=== PATIENT | male | born 1975 | race African-American/Black ===

== ENCOUNTER → 2016-12-31 | Outpatient (CLI) | payer BC ==
--- NOTE | 2016-12-31 14:06 | US ---
EXAMINATION TYPE: US gallbladder DATE OF EXAM: 12/31/2016 COMPARISON: NONE CLINICAL HISTORY: R10.11 RT Upper Quadrant Pain. Pt states nausea, pt not NPO wanted to proceed with exam regardless EXAM MEASUREMENTS: Liver Length: 15.3 cm Gallbladder Wall: 0.2 cm CBD: 0.4 cm Right Kidney: 10.3 x 4.6 x 5.1 cm Pt very gassy Pancreas: Obscured by bowel gas Liver: Visualized portions appeared wnl Gallbladder: Lumen clear, appeared wnl Evidence for sonographic Waller's sign: No CBD: wnl Right Kidney: Appeared wnl, lower pole obscured by overlying bowel gas IMPRESSION: 1. No suspicious acute changes. There is limitation due to bowel gas limits exam.
== END | disposition home or self-care (01) ==
LOC: RADUSWWP 08:20
PROVIDERS: ATTEND Family Medicine
DX: R10.11 Right upper quadrant pain (principal)
CPT/HCPCS: 76705

== ENCOUNTER 2017-01-06 12:50 | Inpatient (IN) | payer BC ==
[2017-01-06] MEDS ORDERED: SODIUM CHLORIDE 0.9% 1,000 ML IV STA ×2 (13:18)
--- NOTE | 2017-01-06 13:26 | ED ---
Altered Mental Status HPI - General Chief Complaint: Altered Mental Status Stated Complaint: Altered Mental Status Time Seen by Provider: 01/06/17 13:00 Source: family, RN notes reviewed, old records reviewed Mode of arrival: ambulatory Limitations: altered mental status - History of Present Illness Initial Comments: This is a 41-year-old male history of schizophrenia who is brought in by his significant other for evaluation for decreased responsiveness and muscle twitching. Per the significant other the patient has been on latuda in the past but apparently is only been on it sporadically since February of this past year he did restarted taking 2 pills last week and then for the past 5 days she' s been using that he has been having sweats he is having muscle twitching and jerking. He is a decreased oral intake decreased responsiveness. No reports of alcohol or drugs no reports of trauma no reports of fevers or chills cough phlegm production dysuria. Information was gathered from the patient's significant other the patient is nonverbal he does somewhat cooperate with the exam however he wouldn't open his mouth upon request he did allow me to listen to his lungs. MD Complaint: altered mental status, decreased responsiveness, other - Related Data Home Medications Medication Instructions Recorded Confirmed Lurasidone HCl [Latuda] 20 mg PO DAILY 01/06/17 01/06/17 diphenhydrAMINE [Benadryl] 25 - 50 mg PO HS PRN 01/06/17 01/06/17 Allergies Allergy/AdvReac Type Severity Reaction Status Date / Time No Known Allergies Allergy Verified 01/06/17 14:06 Review of Systems ROS Statement: Those systems with pertinent positive or pertinent negative responses have been documented in the HPI. ROS Other: All systems not noted in ROS Statement are negative. Limitations: ROS unobtainable due to patients medical condition Past Medical History Past Medical History: No Reported History History of Any Multi-Drug Resistant Organisms: None Reported Past Surgical History: No Surgical Hx Reported Past Psychological History: Bipolar Smoking Status: Current every day smoker Past Alcohol Use History: Occasional Past Drug Use History: None Reported General Exam - General Exam Comments Initial Comments: This is a well-developed well-nourished awake alert male who is nonverbal he appears be no acute distress however. Limitations: altered mental status General appearance: alert, in no apparent distress Head exam: Present: atraumatic, normocephalic, normal inspection Eye exam: Present: normal appearance, PERRL, EOMI. Absent: scleral icterus, conjunctival injection, periorbital swelling ENT exam: Present: other (Unable to evaluate oral cavity the auditory canals appear to be clear) Neck exam: Present: normal inspection. Absent: tenderness, meningismus, lymphadenopathy Respiratory exam: Present: normal lung sounds bilaterally. Absent: respiratory distress, wheezes, rales, rhonchi, stridor Cardiovascular Exam: Present: regular rate, normal rhythm, normal heart sounds. Absent: systolic murmur, diastolic murmur, rubs, gallop, clicks GI/Abdominal exam: Present: soft, normal bowel sounds. Absent: distended, tenderness, guarding, rebound, rigid Extremities exam: Present: normal inspection, full ROM, normal capillary refill. Absent: tenderness, pedal edema, joint swelling, calf tenderness Back exam: Present: normal inspection Neurological exam: Present: alert, CN II-XII intact, reflexes normal, other ( Unable to fully evaluate due to the patient's lack of cooperation) Psychiatric exam: Present: flat affect Skin exam: Present: warm, dry, intact, normal color. Absent: rash Course Vital Signs 01/06/17 01/06/17 01/06/17 12:53 13:38 14:21 Temperature 96.8 F L Pulse Rate 120 H 81 86 Respiratory 18 18 20 Rate Blood Pressure 138/84 145/90 141/90 O2 Sat by Pulse 100 95 95 Oximetry 01/06/17 15:46 Temperature Pulse Rate 86 Respiratory 20 Rate Blood Pressure 146/90 O2 Sat by Pulse 96 Oximetry Medical Decision Making - Medical Decision Making Patient was evaluated by psych service after being medically cleared patient will be admitted for inpatient treatment - Lab Data Result diagrams: 01/06/17 13:20 01/06/17 13:20 Lab Results 01/06/17 01/06/17 01/06/17 Range/Units 13:20 13:20 13:20 WBC 5.3 (3.8-10.6) k/uL RBC 5.50 (4.30-5.90) m/uL Hgb 16.8 (13.0-17.5) gm/dL Hct 49.2 (39.0-53.0) % MCV 89.5 (80.0-100.0) fL MCH 30.6 (25.0-35.0) pg MCHC 34.2 (31.0-37.0) g/dL RDW 14.5 (11.5-15.5) % Plt Count 233 (150-450) k/uL Neutrophils % 67 % Lymphocytes % 25 % Monocytes % 5 % Eosinophils % 1 % Basophils % 1 % Neutrophils # 3.6 (1.3-7.7) k/uL Lymphocytes # 1.3 (1.0-4.8) k/uL Monocytes # 0.3 (0-1.0) k/uL Eosinophils # 0.1 (0-0.7) k/uL Basophils # 0.0 (0-0.2) k/uL Sodium 140 (137-145) mmol/L Potassium 3.7 (3.5-5.1) mmol/L Chloride 105 (98-107) mmol/L Carbon Dioxide 21 L (22-30) mmol/L Anion Gap 14 mmol/L BUN 19 (9-20) mg/dL Creatinine 1.40 H (0.66-1.25) mg/dL Est GFR (MDRD) Af Amer >60 (>60 ml/min/1.73 sqM) Est GFR (MDRD) Non-Af 55 (>60 ml/min/1.73 sqM) Glucose 131 H (74-99) mg/dL Plasma Lactic Acid Lv (0.7-2.0) mmol/L Calcium 10.2 (8.4-10.2) mg/dL Magnesium 2.3 (1.6-2.3) mg/dL Total Bilirubin 1.3 (0.2-1.3) mg/dL AST 18 (17-59) U/L ALT 32 (21-72) U/L Alkaline Phosphatase 89 (38-126) U/L Total Creatine Kinase 193 H (55-170) U/L CK-MB (CK-2) 0.7 (0.0-2.4) ng/mL CK-MB (CK-2) Rel Index 0.4 Troponin I <0.012 (0.000-0.034) ng/mL Total Protein 7.9 (6.3-8.2) g/dL Albumin 4.7 (3.5-5.0) g/dL Amylase 33 (30-110) U/L Lipase 164 (23-300) U/L TSH 1.270 (0.465-4.680) mIU/L Salicylates <1.0 mg/dL Acetaminophen <10.0 ug/mL Serum Alcohol <10 mg/dL 01/06/17 Range/Units 13:20 WBC (3.8-10.6) k/uL RBC (4.30-5.90) m/uL Hgb (13.0-17.5) gm/dL Hct (39.0-53.0) % MCV (80.0-100.0) fL MCH (25.0-35.0) pg MCHC (31.0-37.0) g/dL RDW (11.5-15.5) % Plt Count (150-450) k/uL Neutrophils % % Lymphocytes % % Monocytes % % Eosinophils % % Basophils % % Neutrophils # (1.3-7.7) k/uL Lymphocytes # (1.0-4.8) k/uL Monocytes # (0-1.0) k/uL Eosinophils # (0-0.7) k/uL Basophils # (0-0.2) k/uL Sodium (137-145) mmol/L Potassium (3.5-5.1) mmol/L Chloride (98-107) mmol/L Carbon Dioxide (22-30) mmol/L Anion Gap mmol/L BUN (9-20) mg/dL Creatinine (0.66-1.25) mg/dL Est GFR (MDRD) Af Amer (>60 ml/min/1.73 sqM) Est GFR (MDRD) Non-Af (>60 ml/min/1.73 sqM) Glucose (74-99) mg/dL Plasma Lactic Acid Lv 1.5 (0.7-2.0) mmol/L Calcium (8.4-10.2) mg/dL Magnesium (1.6-2.3) mg/dL Total Bilirubin (0.2-1.3) mg/dL AST (17-59) U/L ALT (21-72) U/L Alkaline Phosphatase (38-126) U/L Total Creatine Kinase (55-170) U/L CK-MB (CK-2) (0.0-2.4) ng/mL CK-MB (CK-2) Rel Index Troponin I (0.000-0.034) ng/mL Total Protein (6.3-8.2) g/dL Albumin (3.5-5.0) g/dL Amylase (30-110) U/L Lipase (23-300) U/L TSH (0.465-4.680) mIU/L Salicylates mg/dL Acetaminophen ug/mL Serum Alcohol mg/dL - EKG Data -: EKG Interpreted by [facility] EKG shows normal: sinus rhythm (Normal sinus rhythm of 87 appear interval 126 QRS duration 72 QT since QTC of 354/425 nonspecific T-wave configuration in the inferior and anterior leads.) - Radiology Data Radiology results: report reviewed (Imaging was reviewed no acute findings.), image reviewed Disposition Clinical Impression: Schizophrenia, acute Disposition: TRANSFER TO PSYCH HOSP/UNIT Condition: Stable Referrals: Dequan Alvarez DO [Primary Care Provider] - 1-2 days
[2017-01-06 13:51] LABS: Basophils % (A) 1 %; CHCM 35.9; Eosinophils # (A) 0.1 k/uL (0-0.7); Eosinophils % (A) 1 %; HCT 49.2 % (39.0-53.0); HDW 2.67; HGB 16.8 gm/dL (13.0-17.5); Luc # (Auto) 0.07; Luc % (Auto) 1; Lymphocytes # (A) 1.3 k/uL (1.0-4.8); Lymphocytes % (A) 25 %; MCH 30.6 pg (25.0-35.0); MCHC 34.2 g/dL (31.0-37.0); MCV 89.5 fL (80.0-100.0); Mean Platelet Volume 7.8; Monocytes # (A) 0.3 k/uL (0-1.0); Monocytes % (A) 5 %; Neutrophils # (A) 3.6 k/uL (1.3-7.7); Neutrophils % (A) 67 %; RDW 14.5 % (11.5-15.5); WBC 5.3 k/uL (3.8-10.6); WBC (Perox) 5.35
[2017-01-06 13:56] LABS: ALT 32 U/L (21-72); AST 18 U/L (17-59); Acetaminophen <10.0 ug/mL; Alcohol <10 mg/dL; Alkaline Phosphatase 89 U/L (38-126); Amylase 33 U/L (30-110); Anion Gap 14 mmol/L; Blood Urea Nitrogen 19 mg/dL (9-20); Calcium 10.2 mg/dL (8.4-10.2); Carbon Dioxide 21 mmol/L (22-30); Chloride 105 mmol/L (98-107); Glucose 131 mg/dL (74-99); Magnesium 2.3 mg/dL (1.6-2.3); Non-African American GFR(MDRD) 55 (>60 ml/min/1.73 sqM); Potassium 3.7 mmol/L (3.5-5.1); Salicylate <1.0 mg/dL; Sodium 140 mmol/L (137-145); Total Bilirubin 1.3 mg/dL (0.2-1.3); Total Protein 7.9 g/dL (6.3-8.2)
--- NOTE | 2017-01-06 14:02 | XR ---
EXAMINATION TYPE: XR chest 2V DATE OF EXAM: 01/06/2017 COMPARISON: 08/16/2008 HISTORY: 41-year-old male with cough TECHNIQUE: Frontal and lateral views FINDINGS: Heart is upper limits of normal in size. Aorta and pulmonary vasculature are within normal limits. So me scattered mild central peribronchial cuffing is noted. No consolidation or pleural effusion. IMPRESSION: Some mild central peribronchial cuffing could represent bronchitis or uncontrolled asthma.
[2017-01-06 14:09] LABS: Creatine Kinase 193 U/L (55-170)
[2017-01-06 14:22] LABS: Creatine Kinase MB 0.7 ng/mL (0.0-2.4); Troponin I <0.012 ng/mL (0.000-0.034)
[2017-01-06] MEDS ORDERED: diphenhydrAMINE 50 MG/ML 1 ML VIAL IVP STA (15:31)
[2017-01-06] MEDS ORDERED: MAG HYDROX/AL HYDROX/SIMETH 30 ML CUP PO PRN (18:20)
[2017-01-06] MEDS ORDERED: ACETAMINOPHEN TAB 325 MG TAB PO PRN (18:20)
[2017-01-06] MEDS ORDERED: MAGNESIUM HYDROXIDE 2,400 MG/10 ML CUP PO PRN (18:20)
[2017-01-06] MEDS ORDERED: ZIPRASIDONE 20 MG VIAL IM PRN (18:20)
[2017-01-06] MEDS: LORazepam 1 MG TAB PO PRN (18:42)
[2017-01-06] MEDS ORDERED: OLANZapine ODT 5 MG TAB PO ONE (19:30)
[2017-01-06] MEDS: OLANZapine ODT 5 MG TAB PO PRN (20:12)
[2017-01-07] MEDS: LORazepam 1 MG TAB PO PRN ×2 (07:49→16:08)
[2017-01-07] MEDS: OLANZapine ODT 5 MG TAB PO PRN ×2 (07:49→16:19)
--- NOTE | 2017-01-07 16:28 | P.MDCNMH ---
History of Present Illness H&P Date: 01/07/17 Chief Complaint: Medical management This is a 41-year-old -[place] male patient of Dr. Covarrubias with no reported medical history and no surgical history. Patient may have history of schizophrenia. Patient does not have hospitalization here at this facility. Patient is unable to provide information about his history nor whether he's been taking to do as prescribed. Patient apparently came into the emergency center for evaluation for decreased responsiveness and muscle twitching. Noted the patient's creatinine is elevated about 1.4 and has baseline appears to be about 1.2. Patient has been encouraged to increase oral fluids. Total CK is a 193. Troponin was negative and TSH negative. Salicylates and acetaminophen and serum alcohol level were negative. Urine drug screen was not done in the emergency center. Patient apparently has not been eating much and that's about all he will say. He denies any chest pain. Review of Systems ROS unobtainable: due to mental status Past Medical History Past Medical History: No Reported History History of Any Multi-Drug Resistant Organisms: None Reported Past Surgical History: No Surgical Hx Reported Past Psychological History: Bipolar Smoking Status: Current every day smoker Past Alcohol Use History: Occasional Past Drug Use History: None Reported - Past Family History Father Additional Family Medical History / Comment(s): Patient will not provide any information regarding his family history. Medications and Allergies Home Medications Medication Instructions Recorded Confirmed Type Lurasidone HCl [Latuda] 20 mg PO DAILY 01/06/17 01/06/17 History diphenhydrAMINE [Benadryl] 25 - 50 mg PO HS PRN 01/06/17 01/06/17 History Allergies Allergy/AdvReac Type Severity Reaction Status Date / Time No Known Allergies Allergy Verified 01/06/17 14:06 Physical Exam Vitals: Vital Signs Temp Pulse Pulse Resp BP BP Pulse Ox 01/07/17 06:57 98.3 F 73 16 128/69 01/06/17 21:15 80 18 130/80 01/06/17 19:48 148 H 137/90 01/06/17 19:30 98.2 F 87 15 143/74 96 01/06/17 18:15 64 16 130/76 100 01/06/17 16:46 80 20 139/81 98 01/06/17 15:46 86 20 146/90 96 01/06/17 14:21 86 20 141/90 95 01/06/17 13:38 81 18 145/90 95 Intake and Output 01/06/17 01/07/17 01/07/17 22:59 06:59 14:59 Other: Weight 101.151 kg Gen: This is a 41-year-old -[place] male. He is nonverbal but will follow directions. He does not appear to be in acute distress. HEENT: Head is atraumatic, normocephalic. Pupils equal, round. Sclerae is anicteric. NECK: Supple. No JVD. No lymphadenopathy. No thyromegaly. LUNGS: Clear to auscultation. No wheezes or rhonchi. No intercostal retractions. HEART: Regular rate and rhythm. No murmur. ABDOMEN: Soft. Bowel sounds are present. No masses. No tenderness. EXTREMITIES: No pedal edema. No calf tenderness. NEUROLOGICAL: Patient is awake, alert and oriented x1. Cranial nerves 2 through 12 are grossly intact. Cranial Nerve Examination - Cranial Nerves Cranial Nerve II- Optic: Intact Cranial Nerve III- Oculomotor: Intact Cranial Nerve IV- Trochlear: Intact Cranial Nerve V- Trigeminal: Intact Cranial Nerve - Abducens: Intact Cranial Nerve VII- Facial: Intact Cranial Nerve VIII- Auditory: Intact Cranial Nerve IX- Glossopharyngeal: Intact Cranial Nerve X- Vagus: Intact Cranial Nerve XI- Accessory: Intact Cranial Nerve XII- Hypoglossal: Intact Results CBC & Chem 7: 01/06/17 13:20 01/06/17 13:20 Labs: Abnormal Lab Results - Last 24 Hours (Table) 01/06/17 01/06/17 Range/Units 13:20 13:20 Carbon Dioxide 21 L (22-30) mmol/L Creatinine 1.40 H (0.66-1.25) mg/dL Glucose 131 H (74-99) mg/dL Total Creatine Kinase 193 H (55-170) U/L Assessment and Plan Plan: 1. Confusion with probable underlying history of schizophrenia. Patient admitted to the mental health unit. Continue current plan per psychiatrist. 2. Dehydration with elevated creatinine of 1.4. Patient encouraged to increase oral intake. 3. Chronic kidney disease stage III. Impression and plan of care have been directed as dictated by the signing physician. Urvashi Marquez nurse practitioner acting as scribe for signing physician.
[2017-01-07 17:39] LABS: Appearance,Urine Clear (Clear); Bilirubin,Urine Negative (Negative); Glucose,Urine (UA) Negative (Negative); Ketones,Urine Negative (Negative); Leukocyte Esterase,Urine Negative (Negative); Nitrite,Urine Negative (Negative); Protein,Urine Trace (Negative); Specific Gravity,Urine 1.015 (1.001-1.035); UA Billing (MACRO vs. MICRO) CHEM; Urobilinogen,Urine <2.0 mg/dL (<2.0)
[2017-01-07] MEDS: ATORVASTATIN 40 MG TAB PO SCH (19:44)
[2017-01-07] MEDS: DIAZEPAM 2 MG TAB PO SCH (21:32)
--- NOTE | 2017-01-07 22:01 | P.HP ---
Psychiatric H&P - . H&P Date: 01/07/17 History & Physical: Allergies Allergy/AdvReac Type Severity Reaction Status Date / Time No Known Allergies Allergy Verified 01/06/17 14:06 Vital Signs Temp 98.3 F 01/07/17 06:57 Pulse 73 01/07/17 06:57 Resp 16 01/07/17 06:57 BP 128/69 01/07/17 06:57 Pulse Ox 96 01/06/17 19:30 Intake & Output 01/06/17 01/07/17 01/07/17 18:59 06:59 18:59 Weight 101.151 kg Laboratory Last Values WBC 5.3 k/uL (3.8-10.6) 01/06/17 13:20 RBC 5.50 m/uL (4.30-5.90) 01/06/17 13:20 Hgb 16.8 gm/dL (13.0-17.5) 01/06/17 13:20 Hct 49.2 % (39.0-53.0) 01/06/17 13:20 MCV 89.5 fL (80.0-100.0) 01/06/17 13:20 MCH 30.6 pg (25.0-35.0) 01/06/17 13:20 MCHC 34.2 g/dL (31.0-37.0) 01/06/17 13:20 RDW 14.5 % (11.5-15.5) 01/06/17 13:20 Plt Count 233 k/uL (150-450) 01/06/17 13:20 Neutrophils % 67 % 01/06/17 13:20 Lymphocytes % 25 % 01/06/17 13:20 Monocytes % 5 % 01/06/17 13:20 Eosinophils % 1 % 01/06/17 13:20 Basophils % 1 % 01/06/17 13:20 Neutrophils # 3.6 k/uL (1.3-7.7) 01/06/17 13:20 Lymphocytes # 1.3 k/uL (1.0-4.8) 01/06/17 13:20 Monocytes # 0.3 k/uL (0-1.0) 01/06/17 13:20 Eosinophils # 0.1 k/uL (0-0.7) 01/06/17 13:20 Basophils # 0.0 k/uL (0-0.2) 01/06/17 13:20 Sodium 140 mmol/L (137-145) 01/06/17 13:20 Potassium 3.7 mmol/L (3.5-5.1) 01/06/17 13:20 Chloride 105 mmol/L (98-107) 01/06/17 13:20 Carbon Dioxide 21 mmol/L (22-30) L 01/06/17 13:20 Anion Gap 14 mmol/L 01/06/17 13:20 BUN 19 mg/dL (9-20) 01/06/17 13:20 Creatinine 1.40 mg/dL (0.66-1.25) H 01/06/17 13:20 Est GFR (MDRD) Af Amer >60 (>60 ml/min/1.73 sqM) 01/06/17 13:20 Est GFR (MDRD) Non-Af 55 (>60 ml/min/1.73 sqM) 01/06/17 13:20 Glucose 131 mg/dL (74-99) H 01/06/17 13:20 Plasma Lactic Acid Lv 1.5 mmol/L (0.7-2.0) 01/06/17 13:20 Calcium 10.2 mg/dL (8.4-10.2) 01/06/17 13:20 Magnesium 2.3 mg/dL (1.6-2.3) 01/06/17 13:20 Total Bilirubin 1.3 mg/dL (0.2-1.3) 01/06/17 13:20 AST 18 U/L (17-59) 01/06/17 13:20 ALT 32 U/L (21-72) 01/06/17 13:20 Alkaline Phosphatase 89 U/L (38-126) 01/06/17 13:20 Total Creatine Kinase 193 U/L (55-170) H 01/06/17 13:20 CK-MB (CK-2) 0.7 ng/mL (0.0-2.4) 01/06/17 13:20 CK-MB (CK-2) Rel Index 0.4 01/06/17 13:20 Troponin I <0.012 ng/mL (0.000-0.034) 01/06/17 13:20 Total Protein 7.9 g/dL (6.3-8.2) 01/06/17 13:20 Albumin 4.7 g/dL (3.5-5.0) 01/06/17 13:20 Amylase 33 U/L (30-110) 01/06/17 13:20 Lipase 164 U/L (23-300) 01/06/17 13:20 TSH 1.270 mIU/L (0.465-4.680) 01/06/17 13:20 Urine Color Yellow 01/07/17 17:22 Urine Appearance Clear (Clear) 01/07/17 17:22 Urine pH 6.0 (5.0-8.0) 01/07/17 17:22 Ur Specific [place] 1.015 (1.001-1.035) 01/07/17 17:22 Urine Protein Trace (Negative) H 01/07/17 17:22 Urine Glucose (UA) Negative (Negative) 01/07/17 17:22 Urine Ketones Negative (Negative) 01/07/17 17:22 Urine Blood Negative (Negative) 01/07/17 17:22 Urine Nitrite Negative (Negative) 01/07/17 17:22 Urine Bilirubin Negative (Negative) 01/07/17 17:22 Urine Urobilinogen <2.0 mg/dL (<2.0) 01/07/17 17:22 Ur Leukocyte Esterase Negative (Negative) 01/07/17 17:22 Ur Random Creatinine 231.6 mg/dL 01/07/17 17:22 Ur Random Sodium 40 mmol/L (30-90) 01/07/17 17:22 Salicylates <1.0 mg/dL 01/06/17 13:20 Acetaminophen <10.0 ug/mL 01/06/17 13:20 Serum Alcohol <10 mg/dL 01/06/17 13:20 EPS Assessment (01/06/2017): Patient lives with who is with him at bedside. Patient presents with tense , stiff muscles. He appears restless and jittery, at time twitching. When blog writer was asking questions patient was unable to articulate his thoughts. It was difficult for him to form words. Patient has a psych history where he was prescribed Latua. The patient was doing so good the psycharitist stated he no longer needed appointments and that his primary could refill his psych meds. The patient was doing so well he asked his primary if he could stop taking these medications and the primary gave him the OK. This was in February. Approx two weeks ago the patient started having difficulties and within the last couple days his difficulies became severe to the point it was difficult to speak. HPI (01/07/2017): Chava Desai is 41 year old black male who presented to the ER with his who reported a change in patient's mental status over the last two weeks. Patient has historical diagnosis of Psychotic Disorder NOS and has been taking Latuda 20-mg PO QD sporadically since February of 2016 when it was stopped by his prescribing PCP. Patient was admitted to the inpatient unit for evaluation. Patient is difficult to interview due to his inability to answer most questions. Throughout the day, he has shown signs of selective mutism, impoverished speech, and thought blocking at different times. It was noted by staff that receiving a dose of Ativan 1-mg PO patient's spontaneous speech and motor function increased dramatically. Patient is overall a poor historian. He' s not sure why he's in the hospital, but he does believe his brought him to the hospital because he needs help. Patient denies any memory of previous psychiatric admissions or medication history. Patient was offered the choice of Zyprexa or Latuda, he has a history of doing well with both. Patient chose to remain on Latuda. At this time, patient is catatonic, PSYCHIATRIC HISTORY: per chart review this is patient's third psychiatric hospitalization, past diagnosis Psychotic Disorder NOS, prior response to Zyprexa, gynecomastia with Rispperdal PMH: unable to assess due to mental status HOME MEDICATIONS: Home Medications Medication Instructions Recorded Confirmed Lurasidone HCl [Latuda] 20 mg PO DAILY 01/06/17 01/06/17 diphenhydrAMINE [Benadryl] 25 - 50 mg PO HS PRN 01/06/17 01/06/17 SURGICAL HISTORY: unable to assess due to mental status CHEMICAL DEPENDENCY HISTORY: unable to assess due to mental status FAMILY HISTORY: unable to assess due to mental status SOCIAL HISTORY:unable to assess due to mental status education: occupational: environmental: : jain: access t o firearms: sexual orientation: safety at home: STRENGTHS/WEAKNESSES: unable to assess due to mental status INTELLECTUAL FUNCTIONING: per review of the medical record, presumed: average MENTAL STATUS EXAM: Appearance: alert, well groomed, appears stated age, steady gait Behavior: psychomotor retardation+, no abnormal movements, fair eye contact Attitude: cooperative? Speech: minimal, impoverished, increased latency, normal rhythm, normal fluency, normal articulation, volume is soft, prosody is choppy primary language : Turkmen Mood: euthymic? Affect: flat, void of mobility, incongruent with mood Thought processes: thought blocking Thought content: patient does not appear to be responding to internal stimuli; patient denies auditory and visual hallucinations, no delusions appreciated Insight: poor Judgment: fair? Assessment and Plan (1) Catatonia Narrative/Plan: * start Valium 2-mg PO TID and titrate up over the next few days * start Latuda 40-mg PO with breakfast Status: Acute Plan: continue hospitalization, patient is catatonic and while history supports this diagnosis has always been present, it was never given in the past so it must be treated as new onset and fully worked up, patient has carried a non-specific diagnosis of no meaning for over a decade with the same reoccurring symptoms, once the patient's catatonia has resolved patient's mental status will be re- evaluated and an appropriate treatment regimen and plan will begin. Time with Patient: Greater than 30
[2017-01-08] MEDS: OLANZapine ODT 5 MG TAB PO PRN ×2 (01:36→14:12)
[2017-01-08] MEDS: LORazepam 2 MG/ML INJ IM PRN ×2 (05:33→16:23)
[2017-01-08] MEDS: LURASIDONE 40 MG TAB PO SCH (08:31)
[2017-01-08] MEDS: DIAZEPAM 2 MG TAB PO SCH ×3 (08:31→20:38)
[2017-01-08 13:20] LABS: ALT 33 U/L (21-72); AST 23 U/L (17-59); Alkaline Phosphatase 82 U/L (38-126); Anion Gap 12 mmol/L; Blood Urea Nitrogen 18 mg/dL (9-20); Calcium 9.8 mg/dL (8.4-10.2); Carbon Dioxide 29 mmol/L (22-30); Chloride 100 mmol/L (98-107); Glucose 116 mg/dL (74-99); Non-African American GFR(MDRD) >60 (>60 ml/min/1.73 sqM); Potassium 3.8 mmol/L (3.5-5.1); Sodium 141 mmol/L (137-145); Total Protein 7.2 g/dL (6.3-8.2)
[2017-01-08 13:53] LABS: Hemoglobin A1C 5.9 % (4.2-6.1)
--- NOTE | 2017-01-08 14:58 | P.PN ---
Progress Note - Text Interval history: Patient is seen in cross coverage today for Dr. Sadler. He is found in the library standing up with his right arm up and flexed at the elbow. He is nonverbal. His eyes are closed during much of the session. He had been seen earlier in the group setting standing up and not verbalizing. He was directed by nursing staff to go to his room/bathroom Mental status exam: He is found in the library standing up, not verbalizing. His eyes are closed during much of the time. He does not show any agitation. His right arm is held up, flexed at the elbow during much of the session. Plan: We will monitor how he responds to the Valium which is ordered. Ativan is ordered as needed. We'll continue to monitor his status and monitor his response to the current treatment regimen. We'll continue to cover this patient for Dr. Sadler through the weekend.
[2017-01-08 17:15] LABS: Treponemal Ab Non-Reactive (Non-Reactive)
[2017-01-08] MEDS: ATORVASTATIN 40 MG TAB PO SCH (20:38)
[2017-01-09] MEDS: DIAZEPAM 2 MG TAB PO SCH ×3 (11:07→21:19)
[2017-01-09] MEDS: LURASIDONE 40 MG TAB PO SCH (11:07)
--- NOTE | 2017-01-09 12:54 | P.PN ---
Progress Note - Text Interval history: Patient is seen in cross coverage today for Dr. Sadler. He is found in his room lying in bed. He is able to sit up in the bed and although nonverbal seems to relay that he would like to meet in the room. He is nonverbal during the session. Mental status exam: He is initially found in his room lying in bed. He is able to sit up on the bed. He is nonverbal during the session. He does not exhibit any agitation. His eye contact is poor. Returned to the room with the male staff to examine his upper extremities which I did not appreciate any rigidity. I did not note any significant abnormal involuntary movements. Plan: At this time we'll discontinue Latuda. Per chart history he had started this approximately 5 days prior to the admission, will discontinue due to concern of possible side effects. We'll order a neurological consultation with catatonia type presentation to rule out any possibility of seizure activity. We 'll continue to monitor the patient's status.
[2017-01-09] MEDS: LORazepam 2 MG/ML INJ IM PRN (14:40)
[2017-01-09] MEDS: ATORVASTATIN 40 MG TAB PO SCH (21:20)
[2017-01-10] MEDS: DIAZEPAM 2 MG TAB PO SCH (08:58)
[2017-01-10 11:57] LABS: ANA w/Reflex to Titer NEGATIVE (NEGATIVE)
[2017-01-10] MEDS: DIAZEPAM 5 MG TAB PO SCH ×2 (15:40→20:45)
--- NOTE | 2017-01-10 15:51 | P.CNNES ---
History of Present Illness Consult date: 01/10/17 Requesting physician: Stefano Sadler Reason for Consult: Catatonia versus seizure disorder History of Present Illness: Patient is a 41-year-old -[place] male who is being evaluated by the neurology service on 01/10/2017 per the request of Dr. Sadler for the above- mentioned. Patient is poor historian and information was gathered from the chart and from staff. Patient has history of psychotic disorder and had been taking Latuda for some time. In February 2016, patient was taken off of Latuda by PCP. Patient was doing well at that time. Latuda was then restarted by psychiatry and patient was having extrapyramidal symptoms and it was discontinued again. Reportedly, patient has periods of coherent behavior followed by periods of inability to respond. Patient was noted to have tremoring in the ER. Nursing reports questionable absence seizure behavior. No obvious lateralizing weakness is noted. Staff reports patient does display periods of stiff muscles and shuffling ambulation which improves with Valium administration. No tonic-clonic movements have been witnessed. Patient does not have history of seizures. No post ictal state has been described. Vital signs on admission were temp 96.8, pulse rate 120, respiratory rate 18, blood pressure 138/84, and O2 saturation 100% on room air. Laboratory workup showed CBC within normal limits, electrolytes were within normal limits except carbon dioxide of 21. BUN 19, creatinine 1.4. Urine drug screen was positive for benzodiazepines and marijuana. At the time of my evaluation, patient is sitting up at the bedside, answering questions, and moving all extremities. Patient appears to be in no acute distress. Review of Systems REVIEW OF SYSTEMS: Otherwise unremarkable and noncontributory. Past Medical History Past Medical History: No Reported History History of Any Multi-Drug Resistant Organisms: None Reported Past Surgical History: No Surgical Hx Reported Past Psychological History: Bipolar Smoking Status: Current every day smoker Past Alcohol Use History: Occasional Past Drug Use History: None Reported - Past Family History Father Additional Family Medical History / Comment(s): Patient will not provide any information regarding his family history. Medications and Allergies Home Medications Medication Instructions Recorded Confirmed Type Lurasidone HCl [Latuda] 20 mg PO DAILY 01/06/17 01/06/17 History diphenhydrAMINE [Benadryl] 25 - 50 mg PO HS PRN 01/06/17 01/06/17 History Allergies Allergy/AdvReac Type Severity Reaction Status Date / Time No Known Allergies Allergy Verified 01/06/17 14:06 Physical Examination - Vital Signs Vital Signs: Vital Signs Temp Pulse Resp BP 01/10/17 07:15 98.5 F 62 16 110/69 01/09/17 16:23 76 16 122/73 PHYSICAL EXAM: GENERAL APPEARANCE: Patient is a well-developed, -[place] male who appears to be in no acute distress. HEENT: Normocephalic, atraumatic, no facial asymmetry is seen. Neck is supple with no masses felt. CARDIOVASCULAR: Regular rate and rhythm. ABDOMEN: Nontender, nondistended. EXTREMITIES: Show no edema or clubbing. NEUROLOGICAL EXAM: Patient is awake, alert, and oriented 3. Speech is normal but slowed. Language is normal. Strength is full in all 4 extremities. Sensory exam to light touch is normal in all extremities. No obvious facial asymmetry is seen on cranial nerve testing. No tremors or seizure-like activity is noted. Results - Laboratory Findings CBC and BMP: 01/06/17 13:20 01/08/17 12:11 Abnormal Lab Findings: Abnormal Labs 01/06/17 01/06/17 01/07/17 13:20 13:20 17:22 Carbon Dioxide 21 L Creatinine 1.40 H Glucose 131 H Total Creatine Kinase 193 H Urine Protein Trace H U Benzodiazepines Scrn U Marijuana (THC) Screen 01/07/17 01/08/17 17:22 12:11 Carbon Dioxide Creatinine 1.30 H Glucose 116 H Total Creatine Kinase Urine Protein U Benzodiazepines Scrn Detected H U Marijuana (THC) Screen Detected H Assessment and Plan Plan: Impression: 1. Altered mental status 2. Questionable seizure activity 3. Psychotic disorder Recommendations: It does appear that patient is not as responsive as he had been in the past according to the chart. Patient is responsive and answering questions on my exam. Patient does have a flat affect. He denies pain. Given description of possible absence seizure, along with muscle twitching and possible seizure-like movements, I will order an MRI of the brain to evaluate for possible contributing etiology. I will order an EEG. I doubt this is seizure activity but it cannot be ruled out. Latuda can cause seizures and extrapyramidal symptoms. Latuda has been discontinued. Continue neurological checks. Continue seizure precautions. I will continue to follow with you. Further recommendations to follow. Thank you for allowing me to participate in the care of your patient. Feel free to call with any questions or concerns. I performed an examination of the patient and discussed the management with the PURCHASING MANAGER/SALES. I have reviewed the PURCHASING MANAGER/SALES notes and agree with the findings and plan of care.
[2017-01-10] MEDS ORDERED: ARIPiprazole 5 MG TAB PO ONE (16:00)
[2017-01-10] MEDS: LORazepam 2 MG/ML INJ IM PRN (16:20)
[2017-01-10] MEDS: ATORVASTATIN 40 MG TAB PO SCH (20:45)
[2017-01-10] MEDS ORDERED: LORazepam 2 MG/ML INJ IM PRN ×2 (22:54→23:00)
--- NOTE | 2017-01-10 23:52 | P.PN ---
Progress Note - Text Vital Signs Temp 98.5 F 01/10/17 07:15 Pulse 62 01/10/17 07:15 Resp 16 01/10/17 07:15 BP 122/80 01/10/17 20:48 Pulse Ox 96 01/06/17 19:30 Patient interviewed multiple times today. Each time patient catatonic, with waxy flexibly, posturing, mutism, and primarily stupor. Patient was given IM Ativan and within an hour had significant improvement. It is still unclear what the primary source of the catatonia, but catatonia has definitely been established. MRI and EEG ordered and pending. Mental status: patient is awake, well groomed, catatonic with a blank stare exhibiting no psychomotor activity, no spontaneous speech, patient appears in NAD, VS WNL's, labs reviewed -updated regimen: Generic Name Dose Route Start Last Admin Trade Name Freq PRN Reason Stop Dose Admin Aripiprazole 5 mg 01/11/17 09:00 Abilify PO DAILY SNEHA Diazepam 5 mg 01/10/17 16:00 01/10/17 20:45 Valium PO 5 mg TID SNEHA Administration Lorazepam 2 mg 01/10/17 23:00 Ativan IM DIRECTED PRN Severe Catatonia Extrapyramidal Effects Olanzapine 5 mg 01/06/17 20:03 01/08/17 14:12 Zyprexa Zydis PO 5 mg TID PRN Administration Agitation Ziprasidone 20 mg 01/06/17 18:20 Geodon IM BID PRN Agitation or Acute Psychosis
[2017-01-11] MEDS: DIAZEPAM 5 MG TAB PO SCH ×4 (13:05→22:25)
[2017-01-11] MEDS: ARIPiprazole 5 MG TAB PO SCH (13:05)
[2017-01-11 13:22] LABS: Anion Gap 10 mmol/L; Blood Urea Nitrogen 23 mg/dL (9-20); Carbon Dioxide 29 mmol/L (22-30); Chloride 103 mmol/L (98-107); Glucose 124 mg/dL (74-99); Non-African American GFR(MDRD) 54 (>60 ml/min/1.73 sqM); Potassium 4.8 mmol/L (3.5-5.1); Sodium 142 mmol/L (137-145)
[2017-01-11] MEDS ORDERED: LORazepam 1 MG TAB PO ONE (15:45)
--- NOTE | 2017-01-11 19:51 | EEG ---
ELECTROENCEPHALOGRAM REPORT DATE OF SERVICE: 01/11/2017. REASON FOR TESTING: Altered mental status. DESCRIPTION OF THE PROCEDURE: This EEG was performed using a 21 channel digital electroencephalograph, following international 10-20 system. DESCRIPTION OF THE RECORDING: From the beginning of the tracing, and with patient's eyes closed, the background rhythm was mostly consisting of 9-10 hertz alpha frequency in the posterior occipital leads. No obvious asymmetry is seen. Photic stimulation was performed with a good driving response seen. No pathological waves were elicited. Frequent movement artifacts are seen. Hyperventilation was not performed. The patient remains awake throughout the tracing. No epileptiform discharges were seen. His EKG lead showed a regular rate and rhythm. INTERPRETATION: This awake EEG can be considered within normal limits. There is no asymmetry seen. No epileptiform discharges were noticed. The absence of epileptiform discharges does not rule out the diagnosis of epilepsy, therefore clinical correlation is recommended. MMSABIHAL / IJN: [id number] /
--- NOTE | 2017-01-11 20:13 | P.PN ---
Subjective Principal diagnosis: catatonia versus seizure disorder Patient is a 41-year-old -[place] male who is being followed by neurology for possible seizure disorder. Patient is a poor historian with limited communicative ability at this time. Information was gathered from chart and unit staff. Patient has a history of psychotic disorder, schizophrenia. He was being treated with Latuda for greater than 6 months. In February 2016, patient was taken off Latuda by primary care provider. Patient was doing well without medication. Medication was then restarted by psychiatry and patient was having extrapyramidal symptoms and it was discontinued again. Patient is known to have periods of coherent behavior followed by periods of inability to respond. In the ED, patient was noted to have tremor-like activity. Nursing staff reported a possible's absence or forcal seizure behavior. Patient was ambulatory on contact with no lateralizing weakness noted. Staff reports that he is still displaying inattentiveness at times as well as stiff muscles. Symptoms improve intermittently with Valium administration. No tonic- clonic movements have been witnessed. He does not have a prior history of seizure. No postictal state has been described. On contact today, the patient was ambulatory on the unit. He is alert and oriented x 3. He was directable by staff. Patient was unable or unwilling to answer questions and would not follow all verbal commands. Patient is in no acute distress. Patient is currently approximately 24-36 hours post-cessation of Latuda. Per staff, the patient's symptoms have not improved significantly since arrival. EEG and MRI of the brain are pending. Objective - Vital Signs Vital signs: Vital Signs Temp 98.5 F 01/11/17 01:41 Pulse 150 H 01/11/17 17:22 Resp 18 01/11/17 17:22 BP 117/79 01/11/17 17:22 Pulse Ox 96 01/06/17 19:30 - Exam Constitutional: AOx3, cooperative, unable to speak HEENT: NC/AT, no facial asymmetry is seen. Throat: Supple, no masses Respiratory: No increased work of breathing Cardiac: Regular rate and Rhythm GI: non tender, non distended Musculoskeletal: Scoring Machine Operator strengths are equal bilaterally 5/5, Lower extremity strengths are equal bilaterally at 5/5. Neurological: CN II-XII in tact, patient was AOx3, speech and language are normal, no unilateralizing weakness, no seizure or tremor activity noted on physical exam. Sensation was normal. Integementary: no rash, no erythema Psychiatric: mood and affect flat - Labs CBC & Chem 7: 01/06/17 13:20 01/11/17 12:55 Labs: Abnormal Lab Results - Last 24 Hours (Table) 01/11/17 Range/Units 12:55 BUN 23 H (9-20) mg/dL Creatinine 1.42 H (0.66-1.25) mg/dL Glucose 124 H (74-99) mg/dL Microbiology - Last 24 Hours (Table) 01/06/17 13:20 Blood Culture - Preliminary Blood No Growth after 120 hours Assessment and Plan (1) Catatonia Status: Acute (2) Schizophrenia, acute Status: Acute Plan: 1. Catatonia, questionable seizure activity: Patient is intermittently responsive but will not answer questions on exam. Patient does have a flat affect. Patient does not appear to be in pain. An MRI of the brain as well as an EEG have been ordered to investigate possible underlying seizure etiology versus catatonia or medication side effects. At this point it does not appear that the patient's current status is consistent with seizure. The patient is currently 24-36 hours post last dose of Latuda. The medications half-life is approximately 18 hours with a total clearance time of approximately 48 hours. At this point it is unable to be determined with reasonable certainty whether or not the medication is a contributory component to the underlying etiology. At this time we'll wait for the results of the EEG and MRI of the brain to rule out seizure. We'll also need to wait till January 12, 2017 to determine whether or not the Latuda known adverse effects are or are not a contributory factor. Status: Neurology will continue to follow and provide updates as needed or warranted. If you have any further questions, please feel free to contact our office. I discussed the patient's pertinent medical information with Dr. Burns. He agrees with the plan of care as implemented.
--- NOTE | 2017-01-11 22:15 | P.PN ---
Progress Note - Text Interval History: Patient interviewed multiple times today. Patient has fluctuating mental status throughout the day at times catatonic, and generally after receiving benzodiazepine patient temporarily wakes up, has spontaneous motor activity, is able to speak and interact appropriately, and is pleasant. During his catatonic phase, he has varying degrees of of stiffness, no psychomotor activity, waxy flexibility, today more agitation than previous days, mutism, negativism, and as before and most prominently episodes of stupor. These symptoms occur together and in clusters throughout the day. Patient will generally try to follow commands but at times seems to be struggling to do so. Patient had EEG today. He went for MRI and received 4-mg of Ativan prior to such with hopes he would be more cooperative, but patient was terrified once in the machine and could not tolerate it. MRI was aborted. Cr remains slightly elevated, patient encouraged to drink more water. BMP ordered QAM. Mental status: patient is awake, well groomed, catatonic with a blank stare exhibiting no psychomotor activity, no spontaneous speech, patient appears in NAD, VS WNL's, labs reviewed Plan: -consider CT since MRI is no longer a viable option -EEG complete, report pending -increase Valium tomorrow -continue hospitalization, patient continues to be completely incapable of taking care of himself outside of a controlled environment in his catatonic state Active Medications: 3 Generic Name Dose Route Start Last Admin Trade Name Freq PRN Reason Stop Dose Admin Aripiprazole 5 mg 01/11/17 09:00 01/11/17 13:05 Abilify PO 5 mg DAILY SNEHA Administration Diazepam 5 mg 01/10/17 16:00 01/11/17 17:21 Valium PO 5 mg TID SNEHA Administration Lorazepam 2 mg 01/10/17 23:00 Ativan IM Q4H PRN Extrapyramidal Effects Olanzapine 5 mg 01/06/17 20:03 01/08/17 14:12 Zyprexa Zydis PO 5 mg Agitation Ziprasidone 20 mg 01/06/17 18:20 Geodon IM BID PRN Agitation or Acute Psychosis Vital Signs: 3 Temp 98.5 F 01/11/17 01:41 Pulse 95 01/11/17 22:04 Resp 18 01/11/17 17:22 BP 119/76 01/11/17 22:04 Pulse Ox 96 09/28/17 19:30
[2017-01-12] MEDS: OLANZapine ODT 5 MG TAB PO PRN ×2 (02:43→23:20)
--- NOTE | 2017-01-12 07:25 | P.PN ---
Subjective Principal diagnosis: catatonia versus seizure disorder Patient is a 41-year-old -[place] male who is being followed by neurology for possible seizure disorder. Patient is a poor historian with limited communicative ability at this time. Information was gathered from chart and unit staff. Patient has a history of psychotic disorder, schizophrenia. He was being treated with Latuda for greater than 6 months. In February 2016, patient was taken off Latuda by primary care provider. Patient was doing well without medication. Medication was then restarted by psychiatry and patient was having extrapyramidal symptoms and it was discontinued again. Patient is known to have periods of coherent behavior followed by periods of inability to respond. In the ED, patient was noted to have tremor-like activity. Nursing staff reported a possible's absence or forcal seizure behavior. Patient was ambulatory on contact with no lateralizing weakness noted. Staff reports that he is still displaying inattentiveness at times as well as stiff muscles. Symptoms improve intermittently with Valium administration. No tonic- clonic movements have been witnessed. He does not have a prior history of seizure. No postictal state has been described. On contact today, the patient was ambulatory on the unit. He is alert and oriented x 3. He was directable by staff. Patient was unable or unwilling to answer questions and would not follow all verbal commands. Patient is in no acute distress. Patient is currently approximately 24-36 hours post-cessation of Latuda. Per staff, the patient's symptoms have not improved significantly since arrival. EEG and MRI of the brain are pending. Interval Update: 01-12-17 Per nursing staff, the patient was more interactive since yesterday's rounding. He was more verbally communicative to nursing staff especially female staff. He does have waxing and waning symptoms with regards to his catatonia like episodes per staff. Staff nurse and provider interacted with patient initially in patient's room. Patient was alert and oriented 3. He was minimally communicative with provider but would verbalize to female staff nurse only. Patient requested to go to an area of his choosing to complete interaction. During the interaction, patient would routinely requested to take a shower or eat breakfast. He did express to variable degree and interest in reattempting imaging of the brain. Patient's EEG from yesterday returned within normal limits , no epileptiform discharges were noted. Objective - Vital Signs Vital signs: Vital Signs Temp 97.9 F 01/12/17 01:07 Pulse 137 H 01/12/17 01:07 Resp 18 01/12/17 01:07 BP 142/82 01/12/17 01:07 Pulse Ox 96 01/06/17 19:30 - Exam Constitutional: AOx3, cooperative, unable to speak HEENT: NC/AT, no facial asymmetry is seen. Throat: Supple, no masses Respiratory: No increased work of breathing Cardiac: Regular rate and Rhythm GI: non tender, non distended Musculoskeletal: Robotics Specialist strengths are equal bilaterally 5/5, Lower extremity strengths are equal bilaterally at 5/5. Neurological: CN II-XII in tact, patient was AOx3, speech and language are normal, no unilateralizing weakness, no seizure or tremor activity noted on physical exam. Sensation was normal. Integementary: no rash, no erythema Psychiatric: mood and affect flat - Constitutional Constitutional Comment(s): all systems not noted in HPI or negative. - Labs CBC & Chem 7: 01/06/17 13:20 01/11/17 12:55 Labs: Abnormal Lab Results - Last 24 Hours (Table) 01/11/17 Range/Units 12:55 BUN 23 H (9-20) mg/dL Creatinine 1.42 H (0.66-1.25) mg/dL Glucose 124 H (74-99) mg/dL Microbiology - Last 24 Hours (Table) 01/06/17 13:20 Blood Culture - Preliminary Blood No Growth after 120 hours Assessment and Plan (1) Catatonia Status: Acute (2) Schizophrenia, acute Status: Acute Plan: 1. Catatonia, questionable seizure activity: Patient is intermittently responsive but will not answer questions on exam for male provider but will verbalize 2 female nursing staff. Patient does have a flat affect. Patient does not appear to be in pain. An MRI of the brain was attempted yesterday evening and the patient was unable to complete the exam due to anxiety/agitation despite Ativan use. EEG results are noted as within normal limits. At this point it does not appear that the patient's current status is consistent with seizure. per staff, the patient does appear more alert and interactive. The patient is currently almost 48 hours post last dose of Latuda. The medications half-life is approximately 18 hours with a total clearance time of approximately 48 hours. I am going to request a CT of the brain as an alternative imaging option at this time given the patient's anxiety/agitation with MRI. Status: For now, neurology will continue to follow but if the patient CT of the brain returns unremarkable or noncontributory, the patient can be cleared from a neurological standpoint and we can continue workup in the outpatient setting. I discussed the patient's pertinent medical information with Dr. Burns. He agrees with the plan of care as implemented.
[2017-01-12] MEDS: ARIPiprazole 5 MG TAB PO SCH (08:02)
[2017-01-12] MEDS: DIAZEPAM 5 MG TAB PO SCH ×3 (08:02→21:58)
[2017-01-12 08:27] LABS: Anion Gap 12 mmol/L; Blood Urea Nitrogen 22 mg/dL (9-20); Calcium 9.8 mg/dL (8.4-10.2); Carbon Dioxide 28 mmol/L (22-30); Chloride 101 mmol/L (98-107); Glucose 115 mg/dL (74-99); Non-African American GFR(MDRD) 59 (>60 ml/min/1.73 sqM); Potassium 3.9 mmol/L (3.5-5.1); Sodium 141 mmol/L (137-145)
--- NOTE | 2017-01-12 09:50 | CT ---
EXAMINATION TYPE: CT brain wo con DATE OF EXAM: 01/12/2017 COMPARISON: 08/16/2008 HISTORY: 41-year-old male with Seizures TECHNIQUE: Examination was done in axial plane without intravenous contrast. Coronal and sagittal r econstructions performed. CT DLP: 945.5 mGycm Automated exposure control for dose reduction was used. FINDINGS: There is no evidence of acute intracranial hemorrhage, acute ischemic changes, mass, mass-effect, or extra-axial fluid collection. There is no effacement of cerebral sulci or basal subarachnoid cister ns. There is no hydrocephalus. There is no midline shift. Butler-white matter distinction is preserv ed. Divergent gaze suggests underlying strabismus. Visualized paranasal sinuses and mastoid air cells abby ear clear. IMPRESSION: No acute intracranial abnormality seen.
[2017-01-12] MEDS ORDERED: DIAZEPAM 5 MG TAB PO SCH (22:36)
--- NOTE | 2017-01-12 22:45 | P.PN ---
Progress Note - Text Progress Note Date: 01/12/17 Vital Signs Temp 97.9 F 01/12/17 01:07 Pulse 91 01/12/17 16:06 Resp 16 01/12/17 16:06 BP 139/73 01/12/17 16:06 Pulse Ox 96 01/06/17 19:30 Interval History: Patient continues to have a waxing and waning course of catatonia although he has shown some signs of improvement today. Patient's CT and EEG are now both complete and a primary neurological source for catatonia is unlikely at this point. Patient continue to require frequent prompt to eat/drink, his creatinine remains elevated today at: 1.33 (H) Mental status: patient is awake, well groomed, speed is choppy with delayed latency but patient is speaking today, patient appears in NAD, VS WNL's, labs reviewed Plan: -increase Abilify to 10-mg PO QAM -increase Valium to 10-mg PO TID; plan to supplement with Ativan PO if catatonia does not improve within 2-days -CT, EEG reviewed -continue hospitalization, patient continues to be completely incapable of taking care of himself outside of a controlled environment in his catatonic state Active Medications Generic Name Dose Route Start Last Admin Trade Name Freq PRN Reason Stop Dose Admin Acetaminophen 650 mg 01/06/17 18:20 01/09/17 18:53 Tylenol Tab PO 650 mg Q4HR PRN Administration Mild Pain/Discomfort Al Hydroxide/Mg Hydroxide 30 ml 01/06/17 18:20 01/12/17 09:29 Maalox PO 30 ml Q4HR PRN Administration GI Upset Aripiprazole 5 mg 01/11/17 09:00 01/12/17 08:02 Abilify PO 5 mg DAILY SNEHA Administration Diazepam 5 mg 01/10/17 16:00 01/12/17 21:58 Valium PO 5 mg TID SNEHA Administration Lorazepam 2 mg 01/10/17 23:00 Ativan IM Q4H PRN Extrapyramidal Effects Magnesium Hydroxide 2,400 mg 01/06/17 18:20 Milk Of Magnesia PO DAILY PRN Constipation Olanzapine 5 mg 01/06/17 20:03 01/12/17 02:43 Zyprexa Zydis PO 5 mg TID PRN Administration Agitation Ziprasidone 20 mg 01/06/17 18:20 Geodon IM BID PRN Agitation or Acute Psychosis
[2017-01-13] MEDS ORDERED: LORazepam 1 MG TAB PO STA (02:19)
[2017-01-13] MEDS: ARIPiprazole 10 MG TAB PO SCH (08:49)
[2017-01-13 08:59] LABS: Anion Gap 9 mmol/L; Blood Urea Nitrogen 15 mg/dL (9-20); Calcium 9.8 mg/dL (8.4-10.2); Carbon Dioxide 30 mmol/L (22-30); Chloride 101 mmol/L (98-107); Glucose 99 mg/dL (74-99); Non-African American GFR(MDRD) >60 (>60 ml/min/1.73 sqM); Potassium 4.1 mmol/L (3.5-5.1); Sodium 140 mmol/L (137-145)
[2017-01-13] MEDS: DIAZEPAM 5 MG TAB PO SCH ×2 (11:01→15:54)
[2017-01-13] MEDS ORDERED: DIAZEPAM 5 MG TAB PO SCH (21:00)
--- NOTE | 2017-01-13 21:43 | P.PN ---
Progress Note - Text Progress Note Date: 01/13/17 Vital Signs: Temp 97.6 F 01/13/17 06:45 Pulse 97 01/13/17 06:45 Resp 16 01/13/17 06:45 BP 115/79 01/13/17 06:45 Pulse Ox 96 01/06/17 19:30 Interval History: Patient is remarkably improved today with near total resolution of catatonic state for the entire day. His mood is euthymic, his affect is reactive, mobile. He has full range of psychomotor skills and mobility. Gait is steady. Speech is clear, fluent. Muscle stiffness and passive resistance is gone. Patient reports that his catatonic episode was scary, he has fair recall of it, but not all. He is thankful his current regimen is working well. Patient is attending groups and socializing well with peers. On exam, patient appears in NAD, VS WNL's,labs WNL's Appearance: alert, well groomed, appears stated age, steady gait Behavior: no psychomotor agitation or psychomotor retardation, no abnormal movements, fair eye contact Attitude: cooperative Speech: normal rate, rhythm, fluency, articulation; volume; and prosody; primary language: [place]iny[place] Mood: euthymic Affect: congruent, reactive Thought processes: linear, organized Thought content: patient does not appear to be responding to internal stimuli; patient denies auditory and visual hallucinations, no delusions appreciated Insight: fair Judgment: fair Plan: -continue Abilify to 10-mg PO QAM -decrease Valium to 5-mg PO BID due to concerns for excess accumulation -continue hospitalization, possible discharge home tomorrow if patient continues to maintain this level of improvement Active Medications Generic Name Dose Route Start Last Admin Trade Name Samyq PRN Reason Stop Dose Admin Acetaminophen 650 mg 01/06/17 18:20 01/09/17 18:53 Tylenol Tab PO 650 mg Q4HR PRN Administration Mild Pain/Discomfort Al Hydroxide/Mg Hydroxide 30 ml 01/06/17 18:20 01/12/17 09:29 Maalox PO 30 ml Q4HR PRN Administration GI Upset Aripiprazole 10 mg 01/13/17 09:00 01/13/17 08:49 Abilify PO 10 mg DAILY SNEHA Administration Diazepam 5 mg 01/13/17 10:49 01/13/17 15:54 Valium PO 5 mg 0900,1600 SNEHA Administration Diazepam 10 mg 01/13/17 21:00 01/13/17 20:32 Valium PO 10 mg HS SNEHA Administration Lorazepam 2 mg 01/10/17 23:00 Ativan IM Q4H PRN Extrapyramidal Effects Magnesium Hydroxide 2,400 mg 01/06/17 18:20 Milk Of Magnesia PO DAILY PRN Constipation Olanzapine 5 mg 01/06/17 20:03 01/12/17 23:20 Zyprexa Zydis PO 5 mg TID PRN Administration Agitation Ziprasidone 20 mg 01/06/17 18:20 Geodon IM BID PRN Agitation or Acute Psychosis
[2017-01-14] MEDS: DIAZEPAM 5 MG TAB PO SCH ×3 (08:07→21:16)
[2017-01-14] MEDS: ARIPiprazole 10 MG TAB PO SCH (08:07)
[2017-01-14 10:14] LABS: Anion Gap 10 mmol/L; Blood Urea Nitrogen 14 mg/dL (9-20); Calcium 9.7 mg/dL (8.4-10.2); Carbon Dioxide 28 mmol/L (22-30); Chloride 103 mmol/L (98-107); Glucose 111 mg/dL (74-99); Non-African American GFR(MDRD) >60 (>60 ml/min/1.73 sqM); Potassium 4.3 mmol/L (3.5-5.1); Sodium 141 mmol/L (137-145)
--- NOTE | 2017-01-14 19:18 | P.PN ---
Progress Note - Text Progress Note Date: 01/14/17 Interval History: Patient interviewed twice today. This morning patient had a complete return of catatonic symptoms and was nonverbal, resistant to interview, and acting strange , Last night, patient was reported by have slept only 3 hours do to another patient on the unit being loud and disruptive. He is reported to have been acting strangely, going into his bathroom and taking off his shirt and scaring his roommate who was so terrified he had to be reassigned to a new room. During second interview, patient's is present and patient is 80$ better engaging in conversation casually although he still has an increased latency compared to yesterday. 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 Questions answered. agreeable with plan. Patient agreeable with plan. Patient will consider transition to Abilify Maintena. On exam, patient appears in NAD, VS WNL's,labs WNL's Appearance: alert, well groomed, appears stated age, steady gait Behavior: catatonic QAM with resolution Q-afternoon, no abnormal movements , fair eye contact Attitude: cooperative Speech: normal rate, rhythm, fluency, articulation; volume; and prosody; primary language: Citizen [place] Mood: euthymic? Affect: flat, immobile while catatonic then bright and reactive late in day Thought processes: linear Thought content: patient does not appear to be responding to internal stimuli; patient denies auditory and visual hallucinations, no delusions appreciated Insight: fair Judgment: fair Plan: -continue Abilify to 10-mg PO QAM; consider starting Abilify Maintena -decrease Valium to 5-mg PO TID due to concerns for excess accumulation, may decrease further if necessary -continue hospitalization, possible discharge home tomorrow if patient continues to maintain this level of improvement
[2017-01-15] MEDS: ARIPiprazole 10 MG TAB PO SCH (08:01)
[2017-01-15] MEDS: DIAZEPAM 5 MG TAB PO SCH ×3 (08:01→21:16)
[2017-01-15 09:02] LABS: Anion Gap 11 mmol/L; Blood Urea Nitrogen 14 mg/dL (9-20); Calcium 10.1 mg/dL (8.4-10.2); Carbon Dioxide 31 mmol/L (22-30); Chloride 103 mmol/L (98-107); Glucose 128 mg/dL (74-99); Non-African American GFR(MDRD) >60 (>60 ml/min/1.73 sqM); Potassium 4.4 mmol/L (3.5-5.1); Sodium 145 mmol/L (137-145)
--- NOTE | 2017-01-15 09:13 | P.PN ---
Progress Note - Text Interval history: The patient is found in group he follows me to an interview room. He reports his mood is pretty good today. He feels that he slept and he ate breakfast this morning. We reviewed his psychotropic medication he has no questions or concerns regarding medications. He is looking forward to a visit from his this evening. It appears he was stabilizing and a discharge was considered but this was postponed until after the weekend. Mental status exam: The patient is a tall -[place] male appearing his stated age. He is dressed in his own clothing. He's pleasant cooperative soft- spoken. He does not initiate speech but he does respond to questions asked. He indicates his mood is "pretty good". Affect is constricted. He reports no suicidal or homicidal ideation intent or plan. He is endorsing no auditory or visual hallucinations or specific delusions. He does not appear hypomanic or manic as he seated in the session today. He is oriented to person place and date. He demonstrates no verbal or physical aggressiveness. Plan: The patient will continue on his current medication. We will monitor him for safety and encourage his participation in the milieu. He anticipates a visit from his today during visiting hours. Vital signs reviewed.
[2017-01-16] MEDS: DIAZEPAM 5 MG TAB PO SCH ×2 (08:32→21:19)
[2017-01-16] MEDS: ARIPiprazole 10 MG TAB PO SCH (08:32)
[2017-01-16 08:53] LABS: Anion Gap 9 mmol/L; Blood Urea Nitrogen 17 mg/dL (9-20); Calcium 10.2 mg/dL (8.4-10.2); Carbon Dioxide 31 mmol/L (22-30); Chloride 101 mmol/L (98-107); Glucose 109 mg/dL (74-99); Non-African American GFR(MDRD) >60 (>60 ml/min/1.73 sqM); Potassium 4.5 mmol/L (3.5-5.1); Sodium 141 mmol/L (137-145)
--- NOTE | 2017-01-16 11:57 | P.PN ---
Progress Note - Text Interval history: The patient is found in his room he follows me to an interview room. He reports his mood is fine. He had some difficulty sleeping last night due to disturbances on the mental health unit. He has no questions or concerns regarding his Abilify. He does state that he feels overly sedated with the Valium and asked that we reduced the dose. It appears that the plan was to taper off of that medication. He reports having a pleasant visit with his he verbalizes no concerns regarding that visit. He endorses no symptoms. Mental status exam: The patient is a tall -[place] male appearing his stated age. Eye contact is appropriate speech is fluent and mainly responsive to questions asked. Affect remains constricted to blunted. He reports having no suicidal or homicidal ideation intent or plan he is endorsing no auditory or visual hallucinations he endorses no specific delusions. There is no observable evidence of psychosis today. He does not appear hypomanic or manic. He demonstrates no loose associations or flight of ideas or tangential thinking. Insight and judgment improving. No verbal or physical aggressiveness demonstrated no observed abnormal involuntary movements. Plan: The patient will continue on his current medication however I will reduce the Valium to 5 mg twice daily. We will continue to monitor him for safety and encourage his participation in the milieu. Vital signs reviewed.
[2017-01-17 05:56] VITALS: BP 128/83; PULSE 83; RESP 16; TEMP 97.9
[2017-01-17] MEDS: DIAZEPAM 5 MG TAB PO SCH (08:49)
[2017-01-17] MEDS: ARIPiprazole 10 MG TAB PO SCH (08:49)
[2017-01-17 10:38] LABS: Anion Gap 8 mmol/L; Blood Urea Nitrogen 13 mg/dL (9-20); Calcium 9.8 mg/dL (8.4-10.2); Carbon Dioxide 34 mmol/L (22-30); Chloride 99 mmol/L (98-107); Glucose 73 mg/dL (74-99); Non-African American GFR(MDRD) >60 (>60 ml/min/1.73 sqM); Potassium 4.3 mmol/L (3.5-5.1); Sodium 141 mmol/L (137-145)
[2017-01-17] MEDS ORDERED: ARIPiprazole 400 MG VIAL (NO CHARGE) IM ONE (14:00)
--- NOTE | 2017-02-06 21:01 | P.DS ---
Providers Date of admission: 01/06/17 16:49 Expected date of discharge: 01/17/17 Attending physician: Stefano Sadler DO Consults: 01/06/17 18:20 Consult Physician Routine Consulting Provider: Cornel Tarango Reason/Comments: H & P and medical care Do you want consulting provider notified?: Yes 01/09/17 13:12 Consult Physician Routine Consulting Provider: Jimbo Burns Consult Reason/Comments: Catatonia, rule out seizure activity Do you want consulting provider notified?: Yes Primary care physician: Dequan Alvarez - Discharge Diagnosis(es) (1) Catatonia Status: Acute Hospital Course: HOSPITAL COURSE: * Legal status at discharge: Voluntary * Compliant with medications: Yes * Reported adverse side effects: No * Require restraints/seclusion: No * Emergency medication administered: No * Attend group, recreational, activity therapies: Yes Chava Desai is 41 year old black male who presented to the ER with his who reported a change in patient's mental status.Patient had historical diagnosis of Psychotic Disorder NOS with intermittent episodes of bizarre behavior followed by extended periods of remission. During hospital course, patient exhibited no signs of psychosis, however, he was profoundly catatonic. He had a notable but short lived response to Ativan with a resolution of catatonic symptoms for only 3-4 hours max. Patient was started on Abilify PO and Valium PO and tolerated both well. Given history of chronic noncompliance but response at relatively small doses, patient was transitioned to Abilify Maintena 300-mg IM Q 4wk + Valium 5-mg PO BID with plan to taper OP to Abilify Maintena monotherapy if possible and if not then with longer use. Patient will continue Abilify PO 10-mg PO QAM x 14 days then stop. At time of discharge, patient awake, alert, smiling and void of any overt signs of catatonia. Patient denied SI/HI/AVH. MENTAL STATUS EXAM: Appearance: alert, well groomed, appears stated age, steady gait Behavior: no psychomotor agitation or psychomotor retardation, no abnormal movements, fair eye contact Attitude: cooperative Speech: normal rate, rhythm, fluency, articulation, volume, and prosody; primary language: American Mood: euthymic Affect: congruent, reactive Thought processes: linear Thought content: patient does not appear to be responding to internal stimuli; patient denies auditory and visual hallucinations, no delusions appreciated Insight: fair Judgment: fair Cognitive: oriented to all 3 spheres, average intelligence Patient Condition at Discharge: Fair Plan - Discharge Summary New Discharge Prescriptions: New ARIPiprazole [Abilify] 10 mg PO DAILY #14 tab Diazepam [Valium] 5 mg PO TID #21 tab ARIPiprazole IM [Abilify Maintena] 300 mg IM ONCE #1 vial Discontinued diphenhydrAMINE [Benadryl] 25 - 50 mg PO HS PRN PRN Reason: Insomnia Lurasidone HCl [Latuda] 20 mg PO DAILY Discharge Medication List ARIPiprazole IM [Abilify Maintena] 300 mg IM ONCE #1 vial 01/17/17 [Rx] ARIPiprazole [Abilify] 10 mg PO DAILY #14 tab 01/17/17 [Rx] Diazepam [Valium] 5 mg PO TID #21 tab 01/17/17 [Rx] Follow up Appointment(s)/Referral(s): [facility] [Outside] - 01/21/17 10:00 am (Herve Cifuentes ) Dequan Alvarez DO [Primary Care Provider] - 1-2 days Patient Instructions/Handouts: Bipolar Disorder (DC) Activity/Diet/Wound Care/Special Instructions: Take medications as prescribed. Do not drink alcohol or use street drugs including marijuana. Be sure to keep your follow up appointment. Crisis Line 5 [phone]. RECEIVED ABILIFY MAINTENA 300-MG IM ON 01/17/2017 AND IS DUE FOR NEXT INJECTION ON 02/14/2017 Discharge Disposition: HOME SELF-CARE
== END 2017-01-17 14:58 | disposition home or self-care (01) | DRG 885 ==
LOC: EC 12:50 → 3MHU 16:49
PROVIDERS: ADMIT Psychiatry & Neurology Psychiatry; ATTEND Psychiatry & Neurology Psychiatry
DX: F20.2 Catatonic schizophrenia (principal); N18.3 Chronic kidney disease, stage 3 (moderate); E86.0 Dehydration; F17.200 Nicotine dependence, unspecified, uncomplicated; G47.9 Sleep disorder, unspecified; R25.1 Tremor, unspecified; Z79.899 Other long term (current) drug therapy
CPT/HCPCS: 36415; 70450; 71020; 80048; 80053; 80306; 80320; 81003; 82150; 82390; 82550; 82553; 82570; 83036; 83520; 83605; 83690; 83735; 84300; 84402; 84439; 84443; 84484; 85025; 86038; 86780; 87040; 87390; 93005; 95819; 96361; 96374; 99285